=== PATIENT | male | born 1980 | race Caucasian/White ===

== ENCOUNTER 2019-05-21 11:45 | Emergency (ER) | payer MEDICAID ==
[2019-05-21] MEDS: ACETAMINOPHEN 500 MG TAB PO (12:51)
[2019-05-21] MEDS: IBUPROFEN 800 MG TAB PO (12:51)
[2019-05-21] MEDS: CEFTRIAXONE 1 GM INJ IM (13:52)
[2019-05-21] MEDS: LIDOCAINE 1% (MPF) 5 ML VIAL INJ (13:53)
== END 2019-05-21 14:11 | disposition home or self-care (01) ==
LOC: FTE 14:11
DX: J18.9 Pneumonia, unspecified organism (principal); Z87.891 Personal history of nicotine dependence
CPT/HCPCS: 71045; 96372; 99284-25

== ENCOUNTER 2019-05-24 09:55 | Emergency (ER) | payer MEDICAID | END 2019-05-24 11:26 | disposition home or self-care (01) | LOC: FTE 09:55 | DX: J18.9 Pneumonia, unspecified organism (principal) | CPT/HCPCS: 99283; Z7502 ==